=== PATIENT | female | born 1960 | race Caucasian/White ===

== ENCOUNTER 2020-04-13 04:59 | Inpatient (IN) ==
[2020-04-13] MEDS ORDERED: Ondansetron 4 MG/2 ML VIAL IVP PRN (07:39)
[2020-04-13] MEDS ORDERED: Naloxone 0.4 MG/ML INJ IVP PRN (07:39)
[2020-04-13] MEDS ORDERED: Acetaminophen 325 MG TABLET PO PRN (08:25)
[2020-04-13 08:57] LABS: INR 1.1; Prothrombin Time 13.2 Seconds (9.4-12.1)
[2020-04-13 09:00] LABS: Activated Partial Thrombo Time 27.4 Seconds (26.0-36.0)
[2020-04-13 09:10] LABS: Lactate Dehydrogenase 240 Units/L (140-271); Magnesium 1.6 mg/dL (1.6-2.6); Phosphorous 2.5 mg/dL (2.7-4.5)
[2020-04-13] MEDS ORDERED: Calcium Gluconate 1gm/50mL 1 GM/50 ML BAG IVPB ONE ×3 (09:13→12:30)
[2020-04-13 09:28] LABS: Ferritin 85 ng/mL (10-120)
[2020-04-13 10:09] LABS: Alanine Aminotransferase 14 Units/L (7-52); Albumin 3.5 g/dL (3.5-5.7); Albumin/Globulin Ratio 1.2 (1.1-2.2); Alkaline Phosphatase 65 Units/L (34-104); Aspartate Amino Transferase 23 Units/L (13-39); BUN/Creatinine Ratio 16 (6-26); Bilirubin,Total 0.2 mg/dL (0.3-1.0); Blood Urea Nitrogen 12 mg/dL (6-20); C-Reactive Protein 46 mg/L (Less than 10); Calcium 7.7 mg/dL (8.6-10.3); Carbon Dioxide 21 mEq/L (23-29); Chloride 107 mEq/L (98-107); Globulin 2.9 g/dL (2.4-3.5); Glucose 145 mg/dL (70-105); Osmolality,Calculated 286 (280-300); Potassium 3.9 mEq/L (3.5-5.1); Sodium 137 mEq/L (136-145); Total Protein 6.4 g/dL (6.4-8.9); eGFR For African Americans > 60 (> 60); eGFR For Non-African Americans > 60 (> 60)
[2020-04-13] MEDS: Dexamethasone 4 MG/ML VIAL IVP SCH (10:22)
[2020-04-13] MEDS: Furosemide 40 MG/4 ML VIAL IVP SCH (10:22)
[2020-04-13] MEDS: Ipratropium 1 PUFF INHALER IH SCH ×3 (10:59→21:01)
[2020-04-13 12:51] LABS: Adenovirus Not Detected (Not Detect); Coronavirus 229E Not Detected (Not Detect); Coronavirus HKU1 Not Detected (Not Detect); Coronavirus NL63 Not Detected (Not Detect); Coronavirus OC43 Not Detected (Not Detect); Human Metapneumovirus Not Detected (Not Detect)
[2020-04-13 12:54] LABS: Bordetella Pertussis Not Detected (Not Detect); Chlamydophila pneumoniae Not Detected (Not Detect); Human Rhinovirus/Enterovirus Not Detected (Not Detect); Influenza A Subtype 2009 H1 Not Detected (Not Detect); Influenza B Not Detected (Not Detect); Mycoplasma pneumoniae Not Detected (Not Detect); Parainfluenza Virus 1 Not Detected (Not Detect); Parainfluenza Virus 2 Not Detected (Not Detect); Parainfluenza Virus 3 Not Detected (Not Detect); Parainfluenza Virus 4 Not Detected (Not Detect); Respiratory Syncytial Virus Not Detected (Not Detect)
[2020-04-13] MEDS ORDERED: 0.9 % Sodium Chloride 250 ML ONE (17:47)
[2020-04-14] MEDS: Ipratropium 1 PUFF INHALER IH SCH ×4 (03:31→21:58)
[2020-04-14 04:18] LABS: INR 0.9; Prothrombin Time 10.8 Seconds (9.4-12.1)
[2020-04-14 04:30] LABS: Magnesium 2.3 mg/dL (1.6-2.6); Phosphorous 2.8 mg/dL (2.7-4.5)
[2020-04-14] MEDS: *HR* Enoxaparin 40 MG/0.4 ML SYRINGE SQ SCH (05:26)
[2020-04-14] MEDS: Dexamethasone 4 MG/ML VIAL IVP SCH (08:51)
[2020-04-14] MEDS: Furosemide 40 MG/4 ML VIAL IVP SCH (08:52)
[2020-04-14] MEDS: levoFLOXacin 750 MG TABLET PO SCH (08:52)
[2020-04-14] MEDS: atenoloL 25 MG TABLET PO SCH (12:06)
[2020-04-15] MEDS: Ipratropium 1 PUFF INHALER IH SCH ×4 (03:35→22:02)
[2020-04-15] MEDS: *HR* Enoxaparin 40 MG/0.4 ML SYRINGE SQ SCH (05:26)
[2020-04-15 07:21] LABS: BUN/Creatinine Ratio 34 (6-26); Blood Urea Nitrogen 22 mg/dL (6-20); Calcium 9.3 mg/dL (8.6-10.3); Carbon Dioxide 27 mEq/L (23-29); Chloride 103 mEq/L (98-107); Glucose 121 mg/dL (70-105); Osmolality,Calculated 291 (280-300); Potassium 4.2 mEq/L (3.5-5.1); Sodium 138 mEq/L (136-145); eGFR For African Americans > 60 (> 60); eGFR For Non-African Americans > 60 (> 60)
[2020-04-15 07:28] LABS: INR 1.1; Prothrombin Time 12.7 Seconds (9.4-12.1)
[2020-04-15] MEDS: Dexamethasone 4 MG/ML VIAL IVP SCH (08:51)
[2020-04-15] MEDS: atenoloL 25 MG TABLET PO SCH (08:52)
[2020-04-15] MEDS: Furosemide 40 MG/4 ML VIAL IVP SCH (08:52)
[2020-04-15] MEDS: levoFLOXacin 750 MG TABLET PO SCH (08:52)
[2020-04-15 16:57] LABS: Basophils # 0.1 K/mcL (0.0-0.2); Basophils % 0.4 %; Hematocrit 41.7 % (35.3-44.9); Hemoglobin 13.9 g/dL (11.5-15.4); Immature Granulocytes % 1.8 % (0-4); Lymphocytes # 0.8 K/mcL (0.6-4.6); Lymphocytes % 6.1 %; Mean Corpuscular HGB Conc 33.3 g/dL (31.6-35.5); Mean Corpuscular Hemoglobin 30.2 pg (28.0-33.3); Mean Corpuscular Volume 90.5 fL (83.0-100.0); Mean Platelet Volume 9.2 fL (9.4-12.4); Monocytes # 0.4 K/mcL (0.0-1.3); Platelet Count 369 K/mcL (140-400); Red Blood Count 4.61 M/mcL (3.82-4.97); Red Cell Distribution Width 12.8 % (11.5-14.5); Segmented Neutrophils % 88.7 %; White Blood Count 13.1 K/mcL (4.3-11.1)
[2020-04-15 17:05] LABS: Neutrophils # 11.6 K/mcL (1.6-8.9)
[2020-04-15 17:15] LABS: Albumin 3.9 g/dL (3.5-5.7); Albumin/Globulin Ratio 1.2 (1.1-2.2); Bilirubin,Direct 0.1 mg/dL (0.0-0.2); Bilirubin,Indirect 0.2 mg/dL (0.0-1.0); Bilirubin,Total 0.3 mg/dL (0.3-1.0); Globulin 3.3 g/dL (2.4-3.5); Total Protein 7.2 g/dL (6.4-8.9)
[2020-04-16 02:02] LABS: Basophils # 0.1 K/mcL (0.0-0.2); Basophils % 0.7 %; Eosinophils # 0.4 K/mcL (0.0-0.6); Eosinophils % 3.2 %; Hematocrit 39.8 % (35.3-44.9); Hemoglobin 13.3 g/dL (11.5-15.4); Immature Granulocytes % 3.8 % (0-4); Lymphocytes # 0.9 K/mcL (0.6-4.6); Lymphocytes % 8.2 %; Mean Corpuscular HGB Conc 33.4 g/dL (31.6-35.5); Mean Corpuscular Hemoglobin 30.2 pg (28.0-33.3); Mean Corpuscular Volume 90.5 fL (83.0-100.0); Mean Platelet Volume 9.2 fL (9.4-12.4); Monocytes # 0.6 K/mcL (0.0-1.3); Monocytes % 5.3 %; Neutrophils # 8.8 K/mcL (1.6-8.9); Platelet Count 337 K/mcL (140-400); Red Cell Distribution Width 12.5 % (11.5-14.5); Segmented Neutrophils % 78.8 %; White Blood Count 11.1 K/mcL (4.3-11.1)
[2020-04-16 02:24] LABS: Alanine Aminotransferase 17 Units/L (7-52); Albumin 3.7 g/dL (3.5-5.7); Albumin/Globulin Ratio 1.2 (1.1-2.2); Alkaline Phosphatase 69 Units/L (34-104); Aspartate Amino Transferase 20 Units/L (13-39); BUN/Creatinine Ratio 36 (6-26); Bilirubin,Total 0.3 mg/dL (0.3-1.0); Blood Urea Nitrogen 25 mg/dL (6-20); Carbon Dioxide 28 mEq/L (23-29); Chloride 100 mEq/L (98-107); Globulin 3.1 g/dL (2.4-3.5); Glucose 132 mg/dL (70-105); Osmolality,Calculated 288 (280-300); Potassium 4.1 mEq/L (3.5-5.1); Sodium 136 mEq/L (136-145); Total Protein 6.8 g/dL (6.4-8.9); eGFR For African Americans > 60 (> 60); eGFR For Non-African Americans > 60 (> 60)
[2020-04-16] MEDS: Ipratropium 1 PUFF INHALER IH SCH ×4 (04:23→22:20)
[2020-04-16] MEDS: *HR* Enoxaparin 40 MG/0.4 ML SYRINGE SQ SCH (05:14)
[2020-04-16] MEDS: GuaiFENesin/Codeine Oral Soln 5 ML UDC PO PRN ×3 (05:14→19:39)
[2020-04-16] MEDS: Furosemide 40 MG/4 ML VIAL IVP SCH (08:24)
[2020-04-16] MEDS: Dexamethasone 4 MG/ML VIAL IVP SCH (08:24)
[2020-04-16] MEDS: atenoloL 25 MG TABLET PO SCH (08:25)
[2020-04-16] MEDS: levoFLOXacin 750 MG TABLET PO SCH (08:25)
[2020-04-16] MEDS ORDERED: Saline Nasal Spray 44 ML BOTTLE NS PRN (15:03)
[2020-04-17] MEDS: GuaiFENesin/Codeine Oral Soln 5 ML UDC PO PRN ×2 (01:20→05:44)
[2020-04-17] MEDS: Ipratropium 1 PUFF INHALER IH SCH ×4 (03:43→21:53)
[2020-04-17] MEDS: *HR* Enoxaparin 40 MG/0.4 ML SYRINGE SQ SCH (05:27)
[2020-04-17] MEDS: Furosemide 40 MG/4 ML VIAL IVP SCH (08:04)
[2020-04-17] MEDS: Dexamethasone 4 MG/ML VIAL IVP SCH (08:04)
[2020-04-17] MEDS: levoFLOXacin 750 MG TABLET PO SCH (08:05)
[2020-04-17] MEDS: atenoloL 25 MG TABLET PO SCH (08:05)
[2020-04-17 08:11] LABS: Hematocrit 40.2 % (35.3-44.9); Hemoglobin 13.6 g/dL (11.5-15.4); Mean Corpuscular HGB Conc 33.8 g/dL (31.6-35.5); Mean Corpuscular Hemoglobin 30.2 pg (28.0-33.3); Mean Corpuscular Volume 89.1 fL (83.0-100.0); Mean Platelet Volume 9.1 fL (9.4-12.4); Platelet Count 385 K/mcL (140-400); Red Blood Count 4.51 M/mcL (3.82-4.97); Red Cell Distribution Width 12.4 % (11.5-14.5); White Blood Count 10.7 K/mcL (4.3-11.1)
[2020-04-17 08:31] LABS: Alanine Aminotransferase 16 Units/L (7-52); Albumin 3.7 g/dL (3.5-5.7); Albumin/Globulin Ratio 1.2 (1.1-2.2); Alkaline Phosphatase 68 Units/L (34-104); Aspartate Amino Transferase 16 Units/L (13-39); BUN/Creatinine Ratio 29 (6-26); Bilirubin,Total 0.4 mg/dL (0.3-1.0); Blood Urea Nitrogen 24 mg/dL (6-20); Calcium 9.2 mg/dL (8.6-10.3); Carbon Dioxide 29 mEq/L (23-29); Chloride 101 mEq/L (98-107); Globulin 3.1 g/dL (2.4-3.5); Glucose 104 mg/dL (70-105); Osmolality,Calculated 288 (280-300); Potassium 3.8 mEq/L (3.5-5.1); Sodium 137 mEq/L (136-145); Total Protein 6.8 g/dL (6.4-8.9); eGFR For African Americans > 60 (> 60); eGFR For Non-African Americans > 60 (> 60)
[2020-04-17 08:47] LABS: Lymphocytes # 2.8 K/mcL (0.6-4.6); Monocytes # 1.1 K/mcL (0.0-1.3); Neutrophils # 6.9 K/mcL (1.6-8.9); Platelet Estimate Normal (Normal); Reactive Lymphocytes Present (Not Present)
[2020-04-17] MEDS: GuaiFENesin/Codeine Oral Soln 5 ML UDC PO SCH ×4 (11:16→21:17)
[2020-04-17] MEDS: *HR* OxyCODONE/APAP 5/325 TABLET PO PRN ×2 (12:58→20:05)
[2020-04-18] MEDS: GuaiFENesin/Codeine Oral Soln 5 ML UDC PO SCH ×6 (01:39→21:14)
[2020-04-18] MEDS: Ipratropium 1 PUFF INHALER IH SCH ×4 (03:32→20:08)
[2020-04-18] MEDS: *HR* Enoxaparin 40 MG/0.4 ML SYRINGE SQ SCH (05:12)
[2020-04-18] MEDS: levoFLOXacin 750 MG TABLET PO SCH (08:37)
[2020-04-18] MEDS: Dexamethasone 4 MG/ML VIAL IVP SCH (08:37)
[2020-04-18] MEDS: Furosemide 20 MG TABLET PO SCH (08:37)
[2020-04-18] MEDS: atenoloL 25 MG TABLET PO SCH (08:39)
[2020-04-19] MEDS: GuaiFENesin/Codeine Oral Soln 5 ML UDC PO SCH ×4 (02:40→13:07)
[2020-04-19] MEDS: Ipratropium 1 PUFF INHALER IH SCH ×3 (03:45→16:06)
[2020-04-19] MEDS: *HR* Enoxaparin 40 MG/0.4 ML SYRINGE SQ SCH (05:10)
[2020-04-19] MEDS: atenoloL 25 MG TABLET PO SCH (07:13)
[2020-04-19] MEDS: levoFLOXacin 750 MG TABLET PO SCH (07:13)
[2020-04-19] MEDS: Furosemide 20 MG TABLET PO SCH (07:13)
[2020-04-19] MEDS: Dexamethasone 4 MG/ML VIAL IVP SCH (07:13)
[2020-04-19 07:29] VITALS: BP 126/94
== END 2020-04-19 16:50 | disposition home or self-care (01) | DRG 177 ==
LOC: 2NENU → SUATTDRO 17:44 → 2NENU 04-16 21:25
PROVIDERS: ADMIT Internal Medicine; ATTEND Internal Medicine